=== PATIENT | male | born 1950 | race African-American/Black ===

== ENCOUNTER 2016-08-11 00:23 | Emergency (ER) | payer OTHER ==
--- NOTE | ~2016-08-11 | CR181 ---
[facility] A Service of [facility] & [facility] RADIOLOGY TEXT RESULTS PATIENT: SABINE ZAMUDIO LOCATION: [facility] : 54 UNIT #: [id number] AGE: [address]: David Naidu MD SEX: M ORDER DR: [id number] [facility] [address] [place], [place] [address] [id number] E MR#: [id number] Acc #: [id number] NAME: SABINE ZAMUDIO : 1950 SEX: M STUDY DATE/TIME: 08/11/2016 2:10 UNIT: [facility] ROOM: STUDY DESCRIPTION: CR Lumbar Spine 2 or 3 Views Attending Physician: David Naidu M.D. Ordering Physician: David Naidu M.D. Primary Care Physician: Primary Care Physician No MEDICAL IMAGING REPORT This report is preliminary unless electronic signature is present EXAM Lumbar spine 3 views HISTORY Generalized back pain, woke up tonight with back pain. FINDINGS AP lateral and coned down lateral views of the lumbar spine demonstrates mild diffuse multilevel degenerative disc changes most pronounced L4-5 with disc space narrowing. No fracture. No lytic or blastic lesions. No spondylolysis spondylolisthesis. Mild lower lumbar spine facet arthropathy. SI joints and soft tissues unremarkable. IMPRESSION [id number]-[id number] diffuse multilevel degenerative disc disease and lower lumbar spine facet arthropathy. Dictated by... Sorin Plunkett M.D. THIS IS AN ELECTRONICALLY VERIFIED REPORT Sorin Plunkett M.D. at 08/11/2016 5:18 AM Frederick TD: 08/11/2016 04:50 JOB #: [id number] MEDICAL IMAGING REPORT Page 1 of 1 COPY
[2016-08-11 02:39] LABS: URINE SOURCE CLEAN CATCH
[2016-08-11 02:50] LABS: URINE APPEARANCE TURBID; URINE BILIRUBIN NEG (NEG); URINE BLOOD 3+ (NEG); URINE COLOR DK YELLOW; URINE GLUCOSE NEG (NEG); URINE KETONE NEG (NEG); URINE LEUKOCYTE ESTERASE NEG (NEG); URINE NITRATE NEG (NEG); URINE PROTEIN TRACE (NEG); URINE SPECIFIC GRAVITY 1.026 (1.003-1.035)
[2016-08-11 02:53] LABS: CULTURE INDICATED? YES; URINE BACTERIA AUWI NEG (NEGATIVE); URINE SQUAMOUS EPITHELIAL CELL OCC /[HPF]
== END 2016-08-11 03:55 | disposition home or self-care (01) ==
LOC: CED 00:23
PROVIDERS: Emergency Medicine
DX: M54.5 Low back pain (principal); I10 Essential (primary) hypertension
CPT/HCPCS: 72100; 81003; 87086; 99283